=== PATIENT | female | born 1990 | race Caucasian/White ===

== ENCOUNTER → 2017-01-15 | Outpatient (CLI) | payer OTHER ==
[2017-01-15 17:47] LABS: BASO % 0.4 % (0.0-1.0); EOS # 0.3 10^3/uL (0.0-0.50); EOS % 2.9 % (0.0-3.0); IMMATURE GRANULOCYTE % 0.3 % (0-0); LYMPH # 2.4 10^3/uL (1.5-6.5); LYMPH % 22.7 % (24.0-44.0); MEAN CORPUSCULAR HEMOGLOBIN 31.2 pg (27.0-33.0); MEAN CORPUSCULAR HGB CONC 34.5 g/dl (32.0-36.5); MEAN CORPUSCULAR VOLUME 90.4 fl (80.0-96.0); MONO # 0.6 10^3/uL (0.0-0.8); MONO % 5.4 % (0.0-5.0); NEUTROPHILS # 7.1 10^3/uL (1.8-7.7); NEUTROPHILS % 68.3 % (36.0-66.0); PLATELET COUNT, AUTOMATED 341 10^3/uL (150-450); RED CELL DISTRIBUTION WIDTH 12.2 % (11.5-14.5); WHITE BLOOD COUNT 10.4 10^3/uL (4.0-10.0)
[2017-01-18 11:52] LABS: HBsAg Prenatal NEGATIVE (NEGATIVE)
== END ==
LOC: M SMT 14:17
PROVIDERS: ATTEND Advanced Practice Midwife
DX: Z34.81 Encounter for supervision of other normal pregnancy, first trimester (principal)

== ENCOUNTER → 2017-02-15 | Outpatient (CLI) | payer OTHER, MEDICAID ==
[2017-02-15 18:14] LABS: MEAN CORPUSCULAR HEMOGLOBIN 30.7 pg (27.0-33.0); MEAN CORPUSCULAR HGB CONC 34.2 g/dl (32.0-36.5); MEAN CORPUSCULAR VOLUME 89.9 fl (80.0-96.0); PLATELET COUNT, AUTOMATED 360 10^3/uL (150-450); RED CELL DISTRIBUTION WIDTH 12.2 % (11.5-14.5); WHITE BLOOD COUNT 12.2 10^3/uL (4.0-10.0)
[2017-02-15 18:38] LABS: ALT/SGPT 14 U/L (12-78); AST/SGOT 10 U/L (7-37); BILIRUBIN,TOTAL 0.2 MG/DL (0.2-1.0); CREATININE FOR GFR 0.57 MG/DL (0.55-1.02); GLOMERULAR FILTRATION RATE > 60.0 (>60); URIC ACID 4.1 MG/DL (2.6-6.0)
== END ==
LOC: M SMT 14:21
PROVIDERS: ATTEND Advanced Practice Midwife
DX: O16.2 Unspecified maternal hypertension, second trimester (principal)

== ENCOUNTER → 2017-02-24 | Outpatient (CLI) | payer OTHER, MEDICAID ==
--- NOTE | 2017-02-24 16:30 | REP ---
Clinical: Anatomical evaluation. Comparison: None . Findings: Examination demonstrates a single live intrauterine in variable presentation. motion is identified by technologist. Placenta is noted posteriorly and grade zero without evidence for placenta previa or abruption. Amniotic fluid volume is normal. Cervix measures 3.3 cm in length and appears closed. No evidence for nuchal cord. Gestational age by current measurements 18 weeks 0 days with GIANCARLO 07/28/2017 . FHR equals 147 beats per minute. BPD 4.0 cm 18 weeks 1 day HC 14.9 cm 18 weeks 0 days AC 12.8 cm 18 weeks 3 days FL 2.7 cm 18 weeks 1 day HL 2.7 cm 18 weeks 4 days HC/AC ratio 1.16 Estimated weight 230 grams ( 53rd percentile). Anatomical assessment demonstrates normal structures including cranium, choroid plexus, cavum, cerebellum/posterior fossa, lungs, diaphragm, stomach, cord insertion/three-vessel cord, kidneys/bladder, spine, and extremities. Impression: Single live intrauterine in variable presentation demonstrating appropriate weight. Limited evaluation of the heart and ventricular outflow tracts and facial features along with cross-section three-vessel cord view may warrant reevaluation and follow-up. Remainder of the anatomical assessment is within normal limits. Signed by Tc Pinzon MD 02/24/2017 02:09 P
== END ==
LOC: M SMT 12:50
PROVIDERS: ATTEND Advanced Practice Midwife
DX: Z36.89 Encounter for other specified antenatal screening (principal); Z3A.18 18 weeks gestation of pregnancy

== ENCOUNTER → 2017-06-16 | Outpatient (CLI) | payer OTHER | LOC: M RAD 11:37 | DX: O10.113 Pre-existing hypertensive heart disease complicating pregnancy, third trimester (principal); Z3A.34 34 weeks gestation of pregnancy; I11.9 Hypertensive heart disease without heart failure | CPT/HCPCS: 76819 ==

== ENCOUNTER → 2017-06-22 | Outpatient (REF) | payer OTHER ==
[2017-06-22 21:59] LABS: CHLAMYDIA DNA AMPLIFICATION NEGATIVE (NEGATIVE); GC DNA AMPLIFICATION NEGATIVE (NEGATIVE)
== END ==
LOC: M LAB REF 16:53
DX: Z34.83 Encounter for supervision of other normal pregnancy, third trimester (principal)

== ENCOUNTER 2017-07-07 14:08 | Inpatient (IN) | payer OTHER ==
[2017-07-07] MEDS: miSOPROStol 50 MCG 1/2 TAB (S0191) PO ×2 (16:17→20:26)
[2017-07-07 16:18] LABS: HEMATOCRIT 25.6 % (36.0-47.0); HEMOGLOBIN 8.9 g/dl (12.0-15.5); MEAN CORPUSCULAR HEMOGLOBIN 30.7 pg (27.0-33.0); MEAN CORPUSCULAR HGB CONC 34.8 g/dl (32.0-36.5); MEAN CORPUSCULAR VOLUME 88.3 fl (80.0-96.0); PLATELET COUNT, AUTOMATED 253 10^3/uL (150-450); RED CELL DISTRIBUTION WIDTH 12.8 % (11.5-14.5); WHITE BLOOD COUNT 10.4 10^3/uL (4.0-10.0)
[2017-07-07 16:41] LABS: ALT/SGPT 10 U/L (12-78); AST/SGOT 18 U/L (7-37); BILIRUBIN,TOTAL 0.2 MG/DL (0.2-1.0); CREATININE FOR GFR 0.66 MG/DL (0.55-1.30); GLOMERULAR FILTRATION RATE > 60.0 (>60); LDH LACTATE DEHYDROGENASE 165 U/L (84-246); URIC ACID 4.6 MG/DL (2.6-6.0)
[2017-07-07] MEDS: LABETALOL HCL 100 MG/20 ML VIAL IV (17:14)
[2017-07-07 17:24] LABS: CREATININE,RANDOM URINE 44.8 MG/DL
[2017-07-07 17:24] LABS: TOTAL PROTEIN,RANDOM URINE 6.7 MG/DL (0.0-12.0)
[2017-07-07] MEDS: LABETALOL 100 MG TAB PO (20:27)
[2017-07-08] MEDS: miSOPROStol 50 MCG 1/2 TAB (S0191) PO ×6 (02:30→20:00)
[2017-07-08] MEDS: LABETALOL 100 MG TAB PO ×2 (08:06→21:31)
[2017-07-08] MEDS: LR 1,000 ML IV ×2 (12:56→14:19)
[2017-07-08] MEDS: OXYTOCIN DRIP 30 UNITS in APPROPRIATE DILUENT 1 EA IV (13:08)
[2017-07-08] MEDS ORDERED: FENTANYL 2MCG/ML ROPIVACAINE 0.2% IN 0.9% NACL 200ML IVBAG As Ordered (13:44)
[2017-07-08 13:52] LABS: HEMATOCRIT 26.6 % (36.0-47.0); HEMOGLOBIN 9.3 g/dl (12.0-15.5); MEAN CORPUSCULAR HEMOGLOBIN 31.1 pg (27.0-33.0); PLATELET COUNT, AUTOMATED 261 10^3/uL (150-450); RED BLOOD COUNT 2.99 10^6/uL (4.00-5.40); RED CELL DISTRIBUTION WIDTH 13.1 % (11.5-14.5); WHITE BLOOD COUNT 13.1 10^3/uL (4.0-10.0)
[2017-07-08] MEDS ORDERED: EPIDURAL COMMENT XX (15:30)
[2017-07-08] MEDS ORDERED: EPIDURAL/PCA KEYS XX (15:30)
[2017-07-08] MEDS ORDERED: ePHEDrine SULFATE 25 MG/5 ML(5MG/ML) SYRINGE IV (15:30)
[2017-07-08] MEDS: FENTANYL/ROPIVACAINE/NACL BAG 200 ML EPIDURAL (15:30)
[2017-07-08] MEDS ORDERED: LACTATED RINGER'S 1000 ML IV (15:30)
[2017-07-08] MEDS ORDERED: NALOXONE INJ 0.4 MG/1 ML VIAL (J2310) IV (15:30)
[2017-07-08] MEDS ORDERED: REFRIGERATOR IV KEYS XX (15:30)
[2017-07-08] MEDS ORDERED: diphenhydrAMINE INJ 50MG/ML VIAL (J1200) IV (15:30)
[2017-07-08] MEDS ORDERED: ONDANSETRON 4MG/2ML VIAL (J2405) IV (15:30)
[2017-07-09] MEDS: miSOPROStol 50 MCG 1/2 TAB (S0191) PO ×3 (04:00→06:23)
[2017-07-09] MEDS: LR 1,000 ML IV ×2 (04:20→10:25)
[2017-07-09] MEDS: LABETALOL 100 MG TAB PO ×2 (08:42→21:06)
[2017-07-09] MEDS: PRENATAL VITAMINS CHEWABLE TABLET PO (09:00)
[2017-07-09] MEDS: OXYTOCIN DRIP 30 UNITS in APPROPRIATE DILUENT 1 EA IV (10:25)
[2017-07-09] MEDS ORDERED: RHOGAM 300 MCG (1500 IU) INJ (J2790) IM (10:30)
[2017-07-09] MEDS ORDERED: PROMETHAZINE 25 MG TAB PO (10:30)
[2017-07-09] MEDS ORDERED: ACETAMINOPHEN 500 MG TAB PO (10:30)
[2017-07-09] MEDS ORDERED: DOCUSATE SODIUM 100 MG CAP PO (10:30)
[2017-07-09] MEDS ORDERED: MEASLES,MUMPS,RUBELLA VACCINE INJ (MMR-II) (90707) SC (10:30)
[2017-07-09] MEDS ORDERED: DIBUCAINE 1% OINTMENT 30GM TOP (10:30)
[2017-07-09] MEDS ORDERED: ONDANSETRON 4MG/2ML VIAL (J2405) IV (10:30)
[2017-07-09] MEDS: IBUPROFEN 800 MG TAB PO (21:05)
[2017-07-10] MEDS: PRENATAL VITAMINS CHEWABLE TABLET PO (08:25)
[2017-07-10] MEDS: LABETALOL 100 MG TAB PO ×2 (08:27→21:07)
[2017-07-10] MEDS ORDERED: LIDOCAINE 1% SDV 5 ML VIAL As Ordered (08:55)
[2017-07-10] MEDS: IBUPROFEN 800 MG TAB PO (21:07)
[2017-07-11] MEDS: PRENATAL VITAMINS CHEWABLE TABLET PO (09:50)
[2017-07-11] MEDS: LABETALOL 100 MG TAB PO (09:51)
== END 2017-07-11 13:28 | disposition home or self-care (01) | DRG 560 ==
LOC: M LDI 14:08 → M OBS 07-09 11:47
PROC: 3E0P7GC Introduction of Other Therapeutic Substance into Female Reproductive, Via Natural or Artificial Opening (ICD-10-PCS; 2017-07-07)
PROC: 10E0XZZ Delivery of Products of Conception, External Approach (ICD-10-PCS; principal; 2017-07-09)
PROC: 0KQM0ZZ Repair Perineum Muscle, Open Approach (ICD-10-PCS; 2017-07-09)
DX: O11.4 Pre-existing hypertension with pre-eclampsia, complicating childbirth (principal); O69.81X0 Labor and delivery complicated by cord around neck, without compression, not applicable or unspecified; Z3A.37 37 weeks gestation of pregnancy; O70.1 Second degree perineal laceration during delivery; Z37.0 Single live birth; O10.02 Pre-existing essential hypertension complicating childbirth

== ENCOUNTER → 2019-08-24 | Outpatient (REF) | payer OTHER ==
[~2019-08-24] MED LIST: CALC500C16 PO; DIBU1OIN TOP; IBUP-1114 PO; LABE10TAB PO; MAPA500T2 PO; PRENTAB9 PO; TUMS500C PO
[2019-08-24 19:09] LABS: HEMATOCRIT 37.6 % (36.0-47.0); HEMOGLOBIN 12.9 g/dl (12.0-15.5); MEAN CORPUSCULAR HEMOGLOBIN 30.4 pg (27.0-33.0); MEAN CORPUSCULAR HGB CONC 34.3 g/dl (32.0-36.5); MEAN CORPUSCULAR VOLUME 88.5 fl (80.0-96.0); PLATELET COUNT, AUTOMATED 382 10^3/uL (150-450); RED BLOOD COUNT 4.25 10^6/uL (4.00-5.40); WHITE BLOOD COUNT 11.4 10^3/uL (4.0-10.0)
[2019-08-24 19:45] LABS: ALT/SGPT 18 U/L (12-78); BILIRUBIN,TOTAL 0.2 MG/DL (0.2-1.0); CREATININE FOR GFR 0.73 MG/DL (0.55-1.30); GLOMERULAR FILTRATION RATE > 60.0 (>60); LDH LACTATE DEHYDROGENASE 129 U/L (84-246); URIC ACID 3.2 MG/DL (2.6-6.0)
[2019-08-24 22:16] LABS: TOTAL PROTEIN,RANDOM URINE 15.2 MG/DL (0.0-12.0)
[2019-08-25 11:29] LABS: HIV 1&2 SCREEN CENTAUR NEGATIVE (NEGATIVE)
== END ==
LOC: M PLALAB 15:08
PROVIDERS: ATTEND Advanced Practice Midwife
DX: O10.011 Pre-existing essential hypertension complicating pregnancy, first trimester (principal); Z3A.00 Weeks of gestation of pregnancy not specified

== ENCOUNTER → 2019-09-21 | Outpatient (REF) | payer OTHER | LOC: M SFHCWAGY 10:08 | PROVIDERS: ATTEND Advanced Practice Midwife | DX: O10.012 Pre-existing essential hypertension complicating pregnancy, second trimester (principal) ==

== ENCOUNTER → 2019-10-09 | Outpatient (CLI) | payer OTHER ==
--- NOTE | 2019-10-10 04:27 | REP ---
OB ULTRASOUND: Real-time sonographic evaluation of gravid uterus performed. There is a single living intrauterine gestation. The estimated gestational age is 18 weeks 6 days, EDC 03/05/2020. Today's measurements indicate appropriate growth. BPD 41 mm = 18 weeks 3 days, 39th percentile HC 156 mm = 18 weeks 3 days, 38th percentile AC 132 mm = 18 weeks 5 days, 46th percentile Femur length 28 mm = 18 weeks 4 days, 42nd percentile HC/AC ratio 1.18, within normal range Estimated weight 250 grams, 37th percentile. Cervical length: Cervix closed and measures 3.8 cm in length. heart rate: 156 beats per minute. SEEN/GROSSLY UNREMARKABLE Lateral ventricles Yes Posterior fossa Yes Upper lip No Four-chamber heart No LVOT No RVOT Yes Stomach Yes Cord insertion Yes Three vessel cord Yes Kidneys Yes Bladder Yes Spine No position: Transverse with head toward the maternal right side. Placenta: Fundal and grade 0 with no previa or abruption. Amniotic fluid: Within normal limits.
== END ==
LOC: M WHC 13:30
PROVIDERS: ATTEND Advanced Practice Midwife
DX: O10.012 Pre-existing essential hypertension complicating pregnancy, second trimester (principal); Z3A.18 18 weeks gestation of pregnancy

== ENCOUNTER → 2019-11-24 | Outpatient (CLI) | payer OTHER ==
--- NOTE | 2020-01-01 07:40 | REP ---
FOLLOW-UP OBSTETRIC ULTRASOUND CLINICAL: Anatomical follow-up evaluation. COMPARISON: 10/09/2019. FINDINGS: Ultrasound examination demonstrates a single live intrauterine in transverse lie with head toward maternal right. motion identified by technologist. Placenta noted posteriorly and grade 0 without evidence for placenta previa or abruption. Amniotic fluid volume is normal. Cervix measures 4.3 cm in length and appears closed. Gestational age by current measurements 25 weeks 1 day. Estimated weight 766 grams (25th percentile). heart rate equals 146 beats per minute. Anatomical assessment demonstrates normal spine and facial features/profile. Four chamber heart and cardiac ventricular outflow tracts are again limited due to positioning. IMPRESSION: * Single live intrauterine demonstrating appropriate estimated weight. * Current examination now demonstrates normal appearance to the spine and face/lips/profile. Four chamber left ventricular outflow tract are again limited in evaluation due to positioning. MTDD
== END ==
LOC: M WHC 09:00
PROVIDERS: ATTEND Obstetrics & Gynecology
DX: Z34.82 Encounter for supervision of other normal pregnancy, second trimester (principal); Z3A.25 25 weeks gestation of pregnancy

== ENCOUNTER → 2020-01-01 | Outpatient (CLI) | payer OTHER ==
--- NOTE | 2020-01-08 09:50 | REP ---
OB ULTRASOUND HISTORY: Follow-up anatomy, heart structures. TECHNIQUE: Real-time sonographic evaluation of the gravid uterus is performed. FINDINGS: There is a single living intrauterine gestation. The estimated gestational age is reportedly 30 weeks 6 days, estimated date of confinement (EDC) 03/05/2020. Todays measurements indicate appropriate growth. BIOMETRY AND GROWTH: BPD 77 mm 30 weeks 5 days 47th percentile HC 285 mm 31 weeks 2 days 56th percentile AC 267 mm 30 weeks 6 days 49th percentile Femur length 59 mm 30 weeks 5 days 48th percentile AC/HC ratio 1.07 Normal 0.97 to 1.16 Estimated weight 1648 g 35th percentile Cervix is closed and measures 3.7 cm in length. position is breech. Placenta is posterior and grade 3 with no previa or abruption. heart rate 140 beats per minute. Amniotic fluid appears within normal limits. Amniotic fluid index (SONDRA) 17.3, normal range 8.8 to 23.8. Four chamber heart is visualized and appears grossly unremarkable. MTDD
== END ==
LOC: M WHC 15:16
PROVIDERS: ATTEND Advanced Practice Midwife
DX: Z36.2 Encounter for other antenatal screening follow-up (principal); Z3A.30 30 weeks gestation of pregnancy; O32.1XX0 Maternal care for breech presentation, not applicable or unspecified

== ENCOUNTER → 2020-01-05 | Outpatient (REF) | payer OTHER | LOC: M SFHCWAGY 16:55 | PROVIDERS: ATTEND Advanced Practice Midwife | DX: O10.013 Pre-existing essential hypertension complicating pregnancy, third trimester (principal) ==

== ENCOUNTER → 2020-02-06 | Outpatient (REF) | payer OTHER | LOC: M SFHCWAGY 16:56 | PROVIDERS: ATTEND Advanced Practice Midwife | DX: Z3A.36 36 weeks gestation of pregnancy (principal) ==

== ENCOUNTER 2020-02-20 06:28 | Inpatient (IN) | payer OTHER ==
[2020-02-20] VITALS (22 sets, daily range): BP systolic 131–182; BP diastolic 85–117
[~2020-02-20] VITALS: Ht 157.5 cm; Wt 89.9 kg
[~2020-02-20 06:28] MED LIST changes: +LABE100T4 PO; -LABE10TAB PO
[2020-02-20] MEDS: LABETALOL 100 MG TAB PO SCH ×2 (07:43→20:10)
[2020-02-20] MEDS: miSOPROStol 50 MCG 1/2 TAB (S0191) PO SCH ×2 (07:57→11:57)
[2020-02-20 08:07] LABS: HEMATOCRIT 26.2 % (36.0-47.0); HEMOGLOBIN 8.7 g/dl (12.0-15.5); MEAN CORPUSCULAR HEMOGLOBIN 29.6 pg (27.0-33.0); MEAN CORPUSCULAR HGB CONC 33.2 g/dl (32.0-36.5); MEAN CORPUSCULAR VOLUME 89.1 fl (80.0-96.0); PLATELET COUNT, AUTOMATED 288 10^3/uL (150-450); RED BLOOD COUNT 2.94 10^6/uL (4.00-5.40); WHITE BLOOD COUNT 8.9 10^3/uL (4.0-10.0)
[2020-02-20 08:31] LABS: ALT/SGPT 9 U/L (12-78); BILIRUBIN,TOTAL 0.2 MG/DL (0.2-1.0); CREATININE FOR GFR 0.76 MG/DL (0.55-1.30); GLOMERULAR FILTRATION RATE > 60.0 (>60); LDH LACTATE DEHYDROGENASE 169 U/L (84-246); URIC ACID 4.1 MG/DL (2.6-6.0)
[2020-02-20 09:05] LABS: CREATININE,RANDOM URINE 84.8 MG/DL; TOTAL PROTEIN,RANDOM URINE 16.9 MG/DL (0.0-12.0)
--- NOTE | 2020-02-20 13:28 | HPE ---
DATE OF ADMISSION: 02/20/2020 SUBJECTIVE: Shania is a 29-year-old 2, para 1-0-0-1 at 38 weeks gestation, EDC of 03/05/2020 based on first trimester ultrasound. She presents for planned induction of labor today per consult with Dr. Naun Fuller due to chronic hypertension. Her chronic hypertension has been managed with p.o. labetalol 100 mg p.o. twice daily. She has not taken todays morning dose of labetalol. She also has been taking Aspirin 81 mg daily. She denies any regular painful contractions, vaginal bleeding, and leakage of fluid. The fetus has been active. She dn any signs or symptoms of preeclampsia, headache, visual disturbances, epigastric pain, and right upper quadrant discomfort. Her care was initiated at [facility] in the first trimester. Her course was complicated by a history of chronic hypertensive with superimposed preeclampsia with her prior and this current with chronic hypertension that has been managed with p.o. labetalol. OBSTETRIC HISTORY: August 2017, 37 weeks, 5 days induction of labor. Vaginal delivery of 6 pound 9 ounce male due to chronic hypertensive with superimposed preeclampsia. OBSTETRIC LABS: O+, antibody screen negative, syphilis negative, gonorrhea and chlamydia negative, hepatitis B surface antigen negative, hepatitis C antibody negative, HIV antibody negative, rubella immune, urine culture no growth, group B strep negative. Her gestational diabetic screening is not present in her records. PAST MEDICAL HISTORY: Chronic hypertension. SURGERIES: Appendectomy 2016. FAMILY HISTORY: Hypertension. SOCIAL HISTORY: The patient is . Her is at bedside and he is supportive. She is a nonsmoker. Denies alcohol use during her . She denies drug use during her . She has no history of sexually transmitted infections and she does deny history of abuse, physician, sexual, and emotional. ALLERGIES: Seasonal. CURRENT MEDICATIONS: - Aspirin 81 mg daily - Labetalol 100 mg p.o. twice daily - vitamin OBJECTIVE: Vital signs: Temperature 97.5, pulse 95, respirations 18, BP upon arrival is elevated at 182/109, 159/117, 158/110. General: She is alert and oriented times three. She is smiling and talkative. No apparent distress. heart rate is 145 with moderate variability, positive accelerations observed. Negative decelerations observed. No pattern of regular contractions. Abdomen is gravid. Cephalic presentation. Estimated weight 6624-6853 gm. External vaginal exam: Fingertip dilation 50% effaced, ballotable station. It is mid position. It is moderate texture and positive show with the exam. ASSESSMENT: Intrauterine at 38 weeks gestation. heart rate category 1. Chronic hypertension. PLAN: Admit the patient to labor and delivery. Saline lock. Regular diet. Out of bed ad bailey. I plan to start misoprostol 50 mcg p.o. q.4h for cervical ripening and then IV Pitocin. May consider Loredo Bulb for mechanical dilation. Risks, benefits and alternatives to induction have been reviewed with the patient. All of her questions have been answered. She does consent to emergency surgery and blood products if they are necessary. I do anticipate cervical ripening, active labor and a spontaneous vaginal delivery. I have ordered a repeat preeclamptic profile as well as a spot urine with her routine labs. PACHECO
[2020-02-20] MEDS ORDERED: OXYTOCIN DRIP 30 UNITS in IV 1 EA IV SCH (17:15)
[2020-02-20] MEDS: LR 1,000 ML IV SCH (17:21)
[2020-02-20] MEDS ORDERED: PROMETHAZINE INJ 25 MG/ML VIAL (J2550) IV ONE (18:15)
[2020-02-20] MEDS ORDERED: BUTORPHANOL 2 MG/ML INJ (J0595) IV ONE (18:15)
[2020-02-20] MEDS ORDERED: hydrALAZINE 20MG/ML 1ML VIAL (J0360 PER 20MG) IV STA (20:31)
[2020-02-20] MEDS ORDERED: FENTANYL 2MCG/ML ROPIVACAINE 0.2% IN 0.9% NACL 100ML IVBAG As Ordered ONE (23:55)
[2020-02-21] VITALS (47 sets, daily range): BP systolic 117–154; BP diastolic 60–101
[2020-02-21] MEDS ORDERED: ePHEDrine SULFATE 25 MG/5 ML(5MG/ML) SYRINGE IV PRN (00:50)
[2020-02-21] MEDS ORDERED: diphenhydrAMINE 50MG/ML VIAL (J1200) IV PRN (00:50)
[2020-02-21] MEDS ORDERED: LACTATED RINGER'S 1000 ML IV PRN (00:50)
[2020-02-21] MEDS ORDERED: EPIDURAL/PCA KEYS XX PRN (00:50)
[2020-02-21] MEDS ORDERED: NALOXONE INJ 0.4MG/1ML VIAL (J2310 PER 1MG) IV PRN (00:50)
[2020-02-21] MEDS ORDERED: ONDANSETRON 4MG/2ML VIAL IV PRN (00:50)
[2020-02-21] MEDS ORDERED: EPIDURAL COMMENT XX SCH (00:50)
[2020-02-21] MEDS: FENTANYL/ROPIVACAINE/NACL BAG 100 ML EPIDURAL SCH ×2 (00:50→09:14)
[2020-02-21] MEDS ORDERED: REFRIGERATOR IV KEYS XX PRN (00:50)
[2020-02-21] MEDS: LR 1,000 ML IV SCH (01:04)
[2020-02-21] MEDS: LABETALOL 100 MG TAB PO SCH (08:59)
[2020-02-21] MEDS ORDERED: OXYTOCIN DRIP 30 UNITS in IV 1 EA IV SCH ×4 (10:34)
[2020-02-21] MEDS ORDERED: DOCUSATE SODIUM 100MG CAPSULE PO PRN (10:45)
[2020-02-21] MEDS ORDERED: RHOGAM 300 MCG (1500 IU) INJ (J2790) IM SCH (10:45)
[2020-02-21] MEDS ORDERED: ACETAMINOPHEN TAB 650MG DOSE (2X325MG) PO PRN (10:45)
[2020-02-21] MEDS ORDERED: ACETAMINOPHEN 500 MG TAB PO PRN (10:45)
[2020-02-21] MEDS ORDERED: IBUPROFEN 800 MG TAB PO PRN (10:45)
[2020-02-21] MEDS ORDERED: BENZOCAINE 20% HEMORRHOIDAL OINTMENT 28GM TUBE TOP PRN (10:45)
[2020-02-21] MEDS ORDERED: MEASLES,MUMPS,RUBELLA VACCINE INJ (MMR-II) (90707) SC SCH (10:45)
[2020-02-21] MEDS ORDERED: IBUPROFEN 600MG TAB PO PRN (10:45)
--- NOTE | 2020-02-21 12:51 | DN ---
DATE OF DELIVERY: 02/21/2020 TIME OF : 1012 GENDER: Male. APGARS: 8 and 9. BRIEF HISTORY: The patient is a 29-year-old 2, para 2-0-0-2 now, who was admitted to labor and delivery for induction of labor due to chronic hypertension. Misoprostol, Cook Loredo catheter, and IV Pitocin were used and labor did ensue. She did utilize an epidural for her labor coping. She reached complete dilation at 1004. She pushed to a normal spontaneous delivery of a live male infant in right occiput anterior (NIRU) position with restitution to left occiput transverse (LOT) position at 1012. There was a nuchal cord x1 loose that was reduced with the somersault maneuver at the time of delivery. The newborns mouth and nares were bulb suctioned and he was placed on the maternal abdomen crying and active. Cord was clamped x2 once pulsations ceased, cut by the father of the baby under my direction. Spontaneous expulsion of an intact placenta with three-vessel cord by Schultze mechanism was at 12/2016. Uterine hemostasis achieved with IV Pitocin rapid infusion and uterine fundal massage. Estimated blood loss 300 mL. Perineum and vagina inspected, noted to have first-degree midline laceration. The laceration was repaired with 3-0 VICRYL RAPIDE in the usual fashion under epidural anesthesia. [place] male weighed 6 pounds 10 ounces (3010 grams). 8 and 9. Mom is going to breastfeed her son, and the family has named him Renea. At the close of delivery, lap counts, needle counts, and instrument counts were correct and verified. [facility]
[2020-02-22] MEDS ORDERED: PRENATAL VITAMINS CHEWABLE TABLET PO SCH (09:00)
== END 2020-02-21 19:15 | disposition home or self-care (01) | DRG 807 ==
LOC: M LDI 06:28 → M OBS 02-21 12:33
PROVIDERS: ADMIT Advanced Practice Midwife; ATTEND Advanced Practice Midwife
PROC: 3E0P7GC Introduction of Other Therapeutic Substance into Female Reproductive, Via Natural or Artificial Opening (ICD-10-PCS; 2020-02-20)
PROC: 10E0XZZ Delivery of Products of Conception, External Approach (ICD-10-PCS; principal; 2020-02-21)
PROC: 0HQ9XZZ Repair Perineum Skin, External Approach (ICD-10-PCS; 2020-02-21)
DX: O10.12 Pre-existing hypertensive heart disease complicating childbirth (principal); Z37.0 Single live birth; Z3A.38 38 weeks gestation of pregnancy; O69.81X0 Labor and delivery complicated by cord around neck, without compression, not applicable or unspecified; O70.0 First degree perineal laceration during delivery